=== PATIENT | male | born 1960 | race Caucasian/White ===

== ENCOUNTER 2019-11-21 06:14 | Day surgery (SDC) | payer OTHER ==
[~2019-11-21] VITALS: Ht 182.9 cm; Wt 100.0 kg
[2019-11-21 06:38] VITALS: BP 152/96
[2019-11-21] MEDS ORDERED: ALLO100T30 PO (06:39)
[2019-11-21] MEDS ORDERED: APIX5TAB PO (06:39)
[2019-11-21] MEDS ORDERED: METO-93 PO (06:39)
[2019-11-21] MEDS ORDERED: MULT-658 PO (06:39)
[2019-11-21] MEDS ORDERED: PROPOFOL 10 MG/ML, 20ML ONE (07:43)
== END 2019-11-21 09:13 | disposition home or self-care (01) ==
LOC: CACL 06:14
PROVIDERS: ATTEND Internal Medicine Cardiovascular Disease
DX: I48.0 Paroxysmal atrial fibrillation (principal); I10 Essential (primary) hypertension; I42.9 Cardiomyopathy, unspecified; G47.33 Obstructive sleep apnea (adult) (pediatric); M10.9 Gout, unspecified; E66.9 Obesity, unspecified; Z68.29 Body mass index [BMI] 29.0-29.9, adult; Z79.01 Long term (current) use of anticoagulants; Z79.899 Other long term (current) drug therapy; Z88.0 Allergy status to penicillin; Z88.1 Allergy status to other antibiotic agents; Z88.8 Allergy status to other drugs, medicaments and biological substances
CPT/HCPCS: 92960; 93005; J2704

== ENCOUNTER → 2020-01-01 | Outpatient (CLI) | payer OTHER ==
[~2020-01-01] MED LIST: ALLO100T30 PO; APIX5TAB PO; METO-93 PO; MULT-658 PO; REGADENOSON 0.4 MG/5 ML SYRINGE ONE
== END | disposition home or self-care (01) ==
LOC: CFH 08:09
PROVIDERS: ATTEND Physician Assistant Medical
DX: I42.9 Cardiomyopathy, unspecified (principal)
CPT/HCPCS: 78452; 93017; A9502; J2785